=== PATIENT | female | born 1975 | race Caucasian/White ===

== ENCOUNTER 2016-05-21 13:47 | Emergency (ER) | payer OTHER ==
[~2016-05-21] VITALS: Ht 152.4 cm; Wt 98.7 kg
[~2016-05-21 13:47] MED LIST: IBUP-1427 PO
[2016-05-21 13:51] VITALS: TEMP 36.5; Ht 152.4 cm; Wt 98.7 kg
[2016-05-21] MEDS ORDERED: CYAN500T13 PO (14:05)
[2016-05-21] MEDS ORDERED: MOME6000 NAE (14:07)
--- NOTE | 2016-05-21 14:54 | DIAGNOSTIC IMAGING REPORT ---
CHEST ONE VIEW PORTABLE CLINICAL HISTORY: cough dyspnea COMPARISON STUDY: 12/17/2015 FINDINGS: The bones soft tissues and hemidiaphragms are normal. The cardiomediastinal silhouette is normal. The lungs are clear. The pulmonary vasculature is normal. IMPRESSION: Negative chest. Electronically signed by: Gerardo Paz M.D. 05/21/2016 2:52 PM Dictated Date/Time: 05/21/2016 2:51 PM
[2016-05-21 15:47] LABS: BASO % 0.6 %; BASO ABS # 0.04 K/uL (0-0.2); COMPLETE YES; EOS % 1.7 %; HEMATOCRIT 39.4 % (37-47); IG% 0.1 %; LYMPH ABS # 1.59 K/uL (1.2-3.4); MEAN CELL VOLUME 82.6 fL (80-100); MEAN CORPUSCULAR HEMOGLOBIN 29.1 pg (25-34); MEAN CORPUSCULAR HGB CONC 35.3 g/dl (32-36); MEAN PLATELET VOLUME 9.1 fL (7.4-10.4); MONO % 6.2 %; NEUT % 68.4 %; PLATELET COUNT 313 K/uL (130-400); RED BLOOD COUNT 4.77 M/uL (4.2-5.4); WHITE BLOOD COUNT 6.92 K/uL (4.8-10.8)
[2016-05-21 16:03] LABS: CALCIUM 9.1 mg/dl (8.5-10.1); CREATININE 0.79 mg/dl (0.60-1.20); POTASSIUM 4.1 mmol/L (3.5-5.1)
[2016-05-21] MEDS ORDERED: AMOXICILLIN/CLAVULANATE TAB 875 MG TAB PO ONE (16:30)
[2016-05-21] MEDS ORDERED: AMOX875T PO (16:32)
[2016-05-21 17:01] VITALS: BP 107/76; PULSE 70; O2SAT 98
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
[2016-05-21] MEDS ORDERED: LEVO75TA5 PO (21:13)
[2016-05-21] MEDS ORDERED: MULTTAB58 PO (21:13)
== END 2016-05-21 17:02 | disposition home or self-care (01) ==
LOC: C.EDB 13:48 → C.EDC 17:02
DX: L03.115 Cellulitis of right lower limb (principal); H66.90 Otitis media, unspecified, unspecified ear; E03.9 Hypothyroidism, unspecified; E05.90 Thyrotoxicosis, unspecified without thyrotoxic crisis or storm; Z87.442 Personal history of urinary calculi; Z98.51 Tubal ligation status; Z79.899 Other long term (current) drug therapy; Z88.2 Allergy status to sulfonamides; Z88.1 Allergy status to other antibiotic agents; Z88.5 Allergy status to narcotic agent; Z91.011 Allergy to milk products; Z80.9 Family history of malignant neoplasm, unspecified; Z83.3 Family history of diabetes mellitus; Z83.79 Family history of other diseases of the digestive system; Z82.49 Family history of ischemic heart disease and other diseases of the circulatory system; Z82.0 Family history of epilepsy and other diseases of the nervous system